=== PATIENT | female | born 1955 | race Caucasian/White ===

== ENCOUNTER 2017-02-02 12:21 | Inpatient (IN) | payer OTHER ==
[2017-02-02] VITALS (7 sets, daily range): BP systolic 134–165; BP diastolic 64–111
[~2017-02-02] VITALS: Ht 160 cm; Wt 54.4 kg
[~2017-02-02 12:21] MED LIST: AMLODIPINE BESYL5 MG; ASPIR 8181 M1 PO; CALCIUM500 M4; Colace PO; DEMECLOCYCLINE150 MG; DILANTIN100 MG; FISH OIL SOFTG1 EACH PO; Keppra PO; LIBRIUM25 MG; LIBRIUM25 MG PO; LUNESTA3 MG; Lunesta; MICRO-K10 ME1 PO; NORVASC5 MG PO; POTASSIUM CL ER 10 M; PROTONIX40 MG PO; Theragran PO; Thiamine,Vitamin B1 PO; Ultram PO; VENTOLIN HFA18 GM; Zestril,Prinivil PO
[2017-02-02 13:05] LABS: GLUCOSE 103 mg/dL (70-99)
[2017-02-02 13:07] LABS: TOTAL BILIRUBIN 2.2 mg/dL (0.0-1.0)
[2017-02-02 13:08] LABS: ALKALINE PHOSPHATASE 185 IU/L (3-129); SERUM ETHYL ALCOHOL < 10 mg/dL
[2017-02-02 13:09] LABS: GFR ESTIMATE (CALCULATED) > 59 mL/min/
[2017-02-02 13:10] LABS: UREA NITROGEN (BUN) 7 mg/dL (9-23)
[2017-02-02 13:16] LABS: ANION GAP 16 MEQ/L (2-14); TROP-I INTERPRETATION NEGATIVE; TROPONIN-I 0.03 ng/mL (0.0-0.30)
[2017-02-02 13:17] LABS: CHLORIDE 70 mEq/L (99-109); POTASSIUM 2.8 mEq/L (3.7-5.4); SODIUM 109 mEq/L (136-147)
[2017-02-02 13:40] LABS: ADD MIUA? YES; BILIRUBIN NEGATIVE; BLOOD SMALL; COLOR YELLOW ((YELLOW)); GLUCOSE (STRIP) NEGATIVE; KETONES 5; LEUKOCYTES TRACE; NITRITE NEGATIVE; PROTEIN (STRIP) >=500; SPECIFIC GRAVITY 1.009 (1.000-1.030)
[2017-02-02 13:42] LABS: BACTERIA NONE SEEN /HPF; EPITHELIAL CELLS RARE /HPF; MUCUS TRACE /LPF; RED BLOOD CELLS 0-5 /HPF (0-5); UCUL ADDED? YES
[2017-02-02 13:44] LABS: EOSINOPHIL (%) 0 % (0-5); HEMATOCRIT 36.7 % (36.0-46.0); IMMATURE GRANULOCYTE (%) 0.8 % (0.0-0.7); INSTRUMENT ABS NEUTROPHIL CT 4.1 K/uL; LYMPHOCYTE COUNT 0.2 K/uL (1.0-2.8); MCH 33.5 PG (29.0-34.0); MCHC 32.7 G/DL (30.0-36.0); MCV 102.5 FL (83-99); MEAN PLAT.VOLUME 8.4 uM^3 (9.5-12.4); MONOCYTE (%) 11.6 % (3-12); MONOCYTE COUNT 0.6 K/uL (0-0.8); NEUTROPHIL (%) 82.5 % (45-76); NEUTROPHIL COUNT 4.1 K/uL (1.8-6.4); PLATELET COUNT 142 K/uL (156-360); RBC DIS.WIDTH-CV 11.2 % (11.8-14.6); RBC DIS.WIDTH-SD 36.1 % (39-53); RED BLOOD COUNT 3.58 M/uL (3.80-5.20); WHITE BLOOD COUNT 4.9 K/uL (4.1-10.2)
[2017-02-02 13:50] LABS: AMPHETAMINE NEGATIVE (500 ng/mL); BARBITURATES NEGATIVE (200 ng/mL); BENZODIAZEPINES NEGATIVE (150 ng/mL); COCAINE NEGATIVE (150 ng/mL); INTERNAL CONTROLS VALID? YES; METHADONE NEGATIVE (200 ng/mL); METHAMPHETAMINE NEGATIVE (500 ng/mL); OPIATES (MORPHINE) NEGATIVE (100 ng/mL); OXYCODONE NEGATIVE (100 ng/mL); PHENCYCLIDINE NEGATIVE (25 ng/mL); PROPOXYPHENE NEGATIVE (300 ng/mL); THC CANNABINOIDS NEGATIVE (50 ng/mL); TRICYCLIC ANTIDEPRESSANTS NEGATIVE (300 ng/mL)
[2017-02-02 14:04] LABS: MAGNESIUM 1.3 mg/dL (1.3-2.7)
[2017-02-02] MEDS ORDERED: PROVENTIL,2.5 MG/0.5 IH (15:47)
[2017-02-02] MEDS ORDERED: COMBIVENT RESPIM4 GM IH (15:47)
[2017-02-02 16:30] LABS: POTASSIUM 3.3 mEq/L (3.7-5.4)
[2017-02-02 16:31] LABS: GLUCOSE 89 mg/dL (70-99)
[2017-02-02 16:33] LABS: ANION GAP 14 MEQ/L (2-14)
[2017-02-02 16:35] LABS: GFR ESTIMATE (CALCULATED) > 59 mL/min/
[2017-02-02 16:36] LABS: UREA NITROGEN (BUN) 6 mg/dL (9-23)
[2017-02-02 16:45] LABS: CHLORIDE 78 mEq/L (99-109); SODIUM 114 mEq/L (136-147)
[2017-02-02 17:33] LABS: URIC ACID 1.9 mg/dL (3.1-9.2)
[2017-02-02 18:20] LABS: METH RESISTANT S AUREUS PCR POSITIVE (NEGATIVE)
[2017-02-02 18:29] LABS: PROBE CHECK PASS; SPECIMEN PROCESSING CONTROL PASS
[2017-02-02 20:28] LABS: ANION GAP 11 MEQ/L (2-14); CHLORIDE 79 MEQ/L (99-109); GFR ESTIMATE (CALCULATED) > 59 mL/min/; GLUCOSE 88 mg/dL (70-99); POTASSIUM 3.1 MEQ/L (3.7-5.4); SAMPLE HEMOLYSIS CHECK 0; SAMPLE ICTERIC CHECK 0; SAMPLE LIPEMIA CHECK 0; UREA NITROGEN (BUN) 6 mg/dL (9-23)
[2017-02-02 20:31] LABS: SODIUM 114 MEQ/L (136-147)
[2017-02-03] VITALS (19 sets, daily range): BP systolic 127–175; BP diastolic 73–113
[2017-02-03 01:17] LABS: CHLORIDE 79 mEq/L (99-109); POTASSIUM 3.7 mEq/L (3.7-5.4)
[2017-02-03 01:19] LABS: GLUCOSE 79 mg/dL (70-99)
[2017-02-03 01:21] LABS: ANION GAP 14 MEQ/L (2-14)
[2017-02-03 01:23] LABS: GFR ESTIMATE (CALCULATED) > 59 mL/min/
[2017-02-03 01:24] LABS: UREA NITROGEN (BUN) 6 mg/dL (9-23)
[2017-02-03 01:35] LABS: MAGNESIUM 2.1 mg/dL (1.3-2.7); SODIUM 114 mEq/L (136-147)
[2017-02-03 06:54] LABS: ANION GAP 7 MEQ/L (2-14); CHLORIDE 78 MEQ/L (99-109); GFR ESTIMATE (CALCULATED) > 59 mL/min/; GLUCOSE 75 mg/dL (70-99); SAMPLE HEMOLYSIS CHECK 3; SAMPLE ICTERIC CHECK 0; SAMPLE LIPEMIA CHECK 0; UREA NITROGEN (BUN) 6 mg/dL (9-23)
[2017-02-03 06:56] LABS: POTASSIUM 4.8 MEQ/L (3.7-5.4); SODIUM 114 MEQ/L (136-147)
[2017-02-03 07:30] LABS: MAGNESIUM 2.2 mg/dl (1.3-2.7)
[2017-02-03 08:22] LABS: UR CREATININE CONCENTRATION 44.8 MG/DL
[2017-02-03 09:05] LABS: ANION GAP 11 MEQ/L (2-14); CHLORIDE 81 MEQ/L (99-109); GFR ESTIMATE (CALCULATED) > 59 mL/min/; GLUCOSE 81 mg/dL (70-99); SAMPLE HEMOLYSIS CHECK 0; SAMPLE ICTERIC CHECK 0; SAMPLE LIPEMIA CHECK 0; UREA NITROGEN (BUN) 7 mg/dL (9-23)
[2017-02-03 09:07] LABS: POTASSIUM 3.1 MEQ/L (3.7-5.4); SODIUM 116 MEQ/L (136-147)
[2017-02-03 10:52] LABS: EOSINOPHIL (%) 0.5 % (0-5); HEMATOCRIT 33.9 % (36.0-46.0); IMMATURE GRANULOCYTE (%) 0.8 % (0.0-0.7); INSTRUMENT ABS NEUTROPHIL CT 2.5 K/uL; LYMPHOCYTE COUNT 0.4 K/uL (1.0-2.8); MCH 33.3 PG (29.0-34.0); MEAN PLAT.VOLUME 8.4 uM^3 (9.5-12.4); MONOCYTE (%) 23.9 % (3-12); MONOCYTE COUNT 0.9 K/uL (0-0.8); NEUTROPHIL (%) 64.4 % (45-76); NEUTROPHIL COUNT 2.5 K/uL (1.8-6.4); PLATELET COUNT 115 K/uL (156-360); RBC DIS.WIDTH-CV 11.4 % (11.8-14.6); RED BLOOD COUNT 3.66 M/uL (3.80-5.20); WHITE BLOOD COUNT 3.9 K/uL (4.1-10.2)
[2017-02-03 10:57] LABS: MCV 92.6 FL (83-99)
[2017-02-03 15:29] LABS: ANION GAP 7 MEQ/L (2-14); CHLORIDE 83 MEQ/L (99-109); GFR ESTIMATE (CALCULATED) > 59 mL/min/; SAMPLE HEMOLYSIS CHECK 0; SAMPLE ICTERIC CHECK 0; SAMPLE LIPEMIA CHECK 0; UREA NITROGEN (BUN) 8 mg/dL (9-23)
[2017-02-03 15:37] LABS: GLUCOSE 129 mg/dL (70-99); SODIUM 116 MEQ/L (136-147)
[2017-02-03 16:49] LABS: C3 COMPLEMENT 89 MG/DL (58-170); C4 COMPLEMENT 29 MG/DL (10-40)
[2017-02-03 16:53] LABS: HDL CHOLESTEROL 71 MG/DL (Desirable>=50); LDL CHOLESTEROL 40 mg/dL (Desirable<100); NON-HDL CHOLESTEROL 53 mg/dL (Desirable<160); TOTAL CHOLESTEROL 124 mg/dL (Desirable<200); TRIGLYCERIDES 63 MG/DL (Normal: <150)
[2017-02-03 17:36] LABS: Estimated Average Glucose 97 mg/dL (70-123)
[2017-02-03 20:31] LABS: ANION GAP 9 MEQ/L (2-14); CHLORIDE 83 MEQ/L (99-109); GFR ESTIMATE (CALCULATED) > 59 mL/min/; GLUCOSE 100 mg/dL (70-99); MAGNESIUM 2.3 mg/dl (1.3-2.7); POTASSIUM 3.6 MEQ/L (3.7-5.4); SAMPLE HEMOLYSIS CHECK 0; SAMPLE ICTERIC CHECK 0; SAMPLE LIPEMIA CHECK 0; UREA NITROGEN (BUN) 10 mg/dL (9-23)
[2017-02-03 20:32] LABS: SODIUM 118 MEQ/L (136-147)
[2017-02-04] VITALS (22 sets, daily range): BP systolic 119–188; BP diastolic 74–133
[2017-02-04 01:00] LABS: MAGNESIUM 2.2 mg/dL (1.3-2.7)
[2017-02-04 01:01] LABS: GLUCOSE 110 mg/dL (70-99)
[2017-02-04 01:02] LABS: ANION GAP 11 MEQ/L (2-14)
[2017-02-04 01:05] LABS: GFR ESTIMATE (CALCULATED) > 59 mL/min/; UREA NITROGEN (BUN) 9 mg/dL (9-23)
[2017-02-04 01:27] LABS: CHLORIDE 87 mEq/L (99-109); POTASSIUM 4.4 mEq/L (3.7-5.4); SODIUM 119 mEq/L (136-147)
[2017-02-04 05:30] LABS: EOSINOPHIL (%) 1.6 % (0-5); EOSINOPHIL COUNT 0.1 K/uL (0-0.3); HEMATOCRIT 30.6 % (36.0-46.0); IMMATURE GRANULOCYTE (%) 0.5 % (0.0-0.7); INSTRUMENT ABS NEUTROPHIL CT 3.1 K/uL; LYMPHOCYTE COUNT 0.5 K/uL (1.0-2.8); MCH 32.3 PG (29.0-34.0); MCV 92.4 FL (83-99); MEAN PLAT.VOLUME 8.7 uM^3 (9.5-12.4); MONOCYTE COUNT 0.7 K/uL (0-0.8); NEUTROPHIL (%) 69.5 % (45-76); NEUTROPHIL COUNT 3.1 K/uL (1.8-6.4); PLATELET COUNT 133 K/uL (156-360); RBC DIS.WIDTH-CV 11.4 % (11.8-14.6); RBC DIS.WIDTH-SD 38.5 % (39-53); RED BLOOD COUNT 3.31 M/uL (3.80-5.20); WHITE BLOOD COUNT 4.4 K/uL (4.1-10.2)
[2017-02-04 06:06] LABS: ANION GAP 8 MEQ/L (2-14); CHLORIDE 87 MEQ/L (99-109); GFR ESTIMATE (CALCULATED) > 59 mL/min/; GLUCOSE 101 mg/dL (70-99); MAGNESIUM 2.1 mg/dl (1.3-2.7); SAMPLE HEMOLYSIS CHECK 0; SAMPLE ICTERIC CHECK 0; SAMPLE LIPEMIA CHECK 0; SODIUM 120 MEQ/L (136-147); UREA NITROGEN (BUN) 6 mg/dL (9-23)
[2017-02-04 11:06] LABS: HBSG INDEX 0.26; HPCA INDEX 0.17
[2017-02-04 11:07] LABS: AHBS INDEX 0.23; HEPATITIS B SURFACE ANTIBODY Nonreactive
[2017-02-04 13:37] LABS: ANION GAP 8 MEQ/L (2-14); CHLORIDE 88 MEQ/L (99-109); GFR ESTIMATE (CALCULATED) > 59 mL/min/; GLUCOSE 114 mg/dL (70-99); MAGNESIUM 1.9 mg/dl (1.3-2.7); POTASSIUM 4.3 MEQ/L (3.7-5.4); SAMPLE HEMOLYSIS CHECK 0; SAMPLE ICTERIC CHECK 0; SAMPLE LIPEMIA CHECK 0; UREA NITROGEN (BUN) 7 mg/dL (9-23)
[2017-02-04 13:41] LABS: SODIUM 116 MEQ/L (136-147)
[2017-02-04 19:23] LABS: ANION GAP 12 MEQ/L (2-14); CHLORIDE 89 MEQ/L (99-109); GFR ESTIMATE (CALCULATED) > 59 mL/min/; GLUCOSE 91 mg/dL (70-99); MAGNESIUM 2.1 mg/dl (1.3-2.7); POTASSIUM 4.6 MEQ/L (3.7-5.4); SAMPLE HEMOLYSIS CHECK 1; SAMPLE ICTERIC CHECK 0; SAMPLE LIPEMIA CHECK 0; SODIUM 118 MEQ/L (136-147); UREA NITROGEN (BUN) 8 mg/dL (9-23)
[2017-02-05] VITALS (25 sets, daily range): BP systolic 101–189; BP diastolic 60–104
[2017-02-05 01:34] LABS: CHLORIDE 88 mEq/L (99-109); SODIUM 120 mEq/L (136-147)
[2017-02-05 01:35] LABS: MAGNESIUM 2.2 mg/dL (1.3-2.7)
[2017-02-05 01:36] LABS: GLUCOSE 102 mg/dL (70-99)
[2017-02-05 01:38] LABS: ANION GAP 11 MEQ/L (2-14)
[2017-02-05 01:40] LABS: GFR ESTIMATE (CALCULATED) > 59 mL/min/
[2017-02-05 01:41] LABS: UREA NITROGEN (BUN) 6 mg/dL (9-23)
[2017-02-05 06:57] LABS: HEMATOCRIT 37.6 % (36.0-46.0); MCH 33.4 PG (29.0-34.0); MCHC 33.8 G/DL (30.0-36.0); RBC DIS.WIDTH-CV 11.7 % (11.8-14.6); RBC DIS.WIDTH-SD 42.9 % (39-53); WHITE BLOOD COUNT 5.7 K/uL (4.1-10.2)
[2017-02-05 06:58] LABS: MCV 98.9 FL (83-99)
[2017-02-05 06:59] LABS: ALKALINE PHOSPHATASE 135 IU/L (3-129); ANION GAP 11 MEQ/L (2-14); CHLORIDE 91 MEQ/L (99-109); DIRECT BILIRUBIN 0.3 mg/dL (0.0-0.3); GFR ESTIMATE (CALCULATED) > 59 mL/min/; GLUCOSE 79 mg/dL (70-99); MAGNESIUM 2.2 mg/dl (1.3-2.7); POTASSIUM 4.4 MEQ/L (3.7-5.4); SAMPLE HEMOLYSIS CHECK 2; SAMPLE ICTERIC CHECK 0; SAMPLE LIPEMIA CHECK 0; SODIUM 124 MEQ/L (136-147); TOTAL BILIRUBIN 1.7 MG/DL (0.0-1.0); UREA NITROGEN (BUN) 7 mg/dL (9-23)
[2017-02-05 07:51] LABS: BASOPHIL COUNT 0.1 K/uL (0-0.1); EOSINOPHIL (%) 1.4 % (0-5); EOSINOPHIL COUNT 0.1 K/uL (0-0.3); IMMATURE GRANULOCYTE (%) 0.5 % (0.0-0.7); INSTRUMENT ABS NEUTROPHIL CT 2.9 K/uL; LYMPHOCYTE COUNT 0.6 K/uL (1.0-2.8); MONOCYTE (%) 35.6 % (3-12); NEUTROPHIL (%) 50.4 % (45-76); NEUTROPHIL COUNT 2.9 K/uL (1.8-6.4); PLAT.SUFFICIENCY DECREASED; PLATELET COUNT 95 K/uL (156-360)
[2017-02-05 13:23] LABS: ANION GAP 12 MEQ/L (2-14); CHLORIDE 92 MEQ/L (99-109); GFR ESTIMATE (CALCULATED) > 59 mL/min/; MAGNESIUM 2.1 mg/dl (1.3-2.7); POTASSIUM 3.9 MEQ/L (3.7-5.4); SAMPLE HEMOLYSIS CHECK 0; SAMPLE ICTERIC CHECK 0; SAMPLE LIPEMIA CHECK 0; SODIUM 124 MEQ/L (136-147); UREA NITROGEN (BUN) 6 mg/dL (9-23)
[2017-02-05 13:30] LABS: GLUCOSE 105 mg/dL (70-99)
[2017-02-05 18:37] LABS: ANION GAP 11 MEQ/L (2-14); CHLORIDE 92 MEQ/L (99-109); GFR ESTIMATE (CALCULATED) > 59 mL/min/; GLUCOSE 111 mg/dL (70-99); MAGNESIUM 2.1 mg/dl (1.3-2.7); POTASSIUM 3.4 MEQ/L (3.7-5.4); SAMPLE HEMOLYSIS CHECK 0; SAMPLE ICTERIC CHECK 0; SAMPLE LIPEMIA CHECK 0; SODIUM 127 MEQ/L (136-147); UREA NITROGEN (BUN) 8 mg/dL (9-23)
[2017-02-06] VITALS (21 sets, daily range): BP systolic 119–188; BP diastolic 68–103
[2017-02-06 00:41] LABS: CHLORIDE 93 mEq/L (99-109); POTASSIUM 3.8 mEq/L (3.7-5.4); SODIUM 128 mEq/L (136-147)
[2017-02-06 00:42] LABS: MAGNESIUM 2.2 mg/dL (1.3-2.7)
[2017-02-06 00:43] LABS: GLUCOSE 107 mg/dL (70-99)
[2017-02-06 00:45] LABS: ANION GAP 11 MEQ/L (2-14)
[2017-02-06 00:47] LABS: GFR ESTIMATE (CALCULATED) > 59 mL/min/
[2017-02-06 00:48] LABS: UREA NITROGEN (BUN) 11 mg/dL (9-23)
[2017-02-06 04:52] LABS: BASOPHIL COUNT 0.1 K/uL (0-0.1); EOSINOPHIL (%) 1.4 % (0-5); EOSINOPHIL COUNT 0.1 K/uL (0-0.3); HEMATOCRIT 31.3 % (36.0-46.0); IMMATURE GRANULOCYTE (%) 0.7 % (0.0-0.7); INSTRUMENT ABS NEUTROPHIL CT 3.1 K/uL; LYMPHOCYTE COUNT 0.9 K/uL (1.0-2.8); MCH 33.5 PG (29.0-34.0); MCHC 34.5 G/DL (30.0-36.0); MCV 97.2 FL (83-99); MEAN PLAT.VOLUME 8.8 uM^3 (9.5-12.4); MONOCYTE (%) 23.8 % (3-12); MONOCYTE COUNT 1.3 K/uL (0-0.8); NEUTROPHIL (%) 56.4 % (45-76); NEUTROPHIL COUNT 3.1 K/uL (1.8-6.4); RBC DIS.WIDTH-CV 11.8 % (11.8-14.6); RBC DIS.WIDTH-SD 41.6 % (39-53); RED BLOOD COUNT 3.22 M/uL (3.80-5.20); WHITE BLOOD COUNT 5.6 K/uL (4.1-10.2)
[2017-02-06 04:53] LABS: PLATELET COUNT 165 K/uL (156-360)
[2017-02-06 04:57] LABS: CHLORIDE 95 mEq/L (99-109); MAGNESIUM 2.3 mg/dL (1.3-2.7); SODIUM 129 mEq/L (136-147)
[2017-02-06 04:59] LABS: GLUCOSE 103 mg/dL (70-99)
[2017-02-06 05:00] LABS: ANION GAP 9 MEQ/L (2-14)
[2017-02-06 05:03] LABS: GFR ESTIMATE (CALCULATED) > 59 mL/min/; UREA NITROGEN (BUN) 11 mg/dL (9-23)
[2017-02-06 16:34] LABS: ANION GAP 8 MEQ/L (2-14); CHLORIDE 93 MEQ/L (99-109); GFR ESTIMATE (CALCULATED) > 59 mL/min/; GLUCOSE 113 mg/dL (70-99); POTASSIUM 3.5 MEQ/L (3.7-5.4); SAMPLE HEMOLYSIS CHECK 0; SAMPLE ICTERIC CHECK 0; SAMPLE LIPEMIA CHECK 0; SODIUM 128 MEQ/L (136-147); UREA NITROGEN (BUN) 10 mg/dL (9-23)
[2017-02-06 16:37] LABS: MAGNESIUM 1.7 mg/dl (1.3-2.7)
[2017-02-07] VITALS (7 sets, daily range): BP systolic 126–175; BP diastolic 76–90
[2017-02-07 00:56] LABS: CHLORIDE 96 mEq/L (99-109); SODIUM 128 mEq/L (136-147)
[2017-02-07 00:58] LABS: GLUCOSE 119 mg/dL (70-99); MAGNESIUM 1.7 mg/dL (1.3-2.7)
[2017-02-07 01:00] LABS: ANION GAP 5 MEQ/L (2-14)
[2017-02-07 01:02] LABS: GFR ESTIMATE (CALCULATED) > 59 mL/min/
[2017-02-07 01:03] LABS: UREA NITROGEN (BUN) 10 mg/dL (9-23)
[2017-02-07 01:53] LABS: ADD MIUA? YES; BILIRUBIN NEGATIVE; BLOOD SMALL; COLOR YELLOW ((YELLOW)); GLUCOSE (STRIP) NEGATIVE; KETONES NEGATIVE; LEUKOCYTES TRACE; NITRITE NEGATIVE; PROTEIN (STRIP) NEGATIVE; SPECIFIC GRAVITY 1.014 (1.000-1.030)
[2017-02-07 02:01] LABS: BASOPHIL COUNT 0.1 K/uL (0-0.1); EOSINOPHIL (%) 0.6 % (0-5); HEMATOCRIT 27.1 % (36.0-46.0); IMMATURE GRANULOCYTE (%) 0.6 % (0.0-0.7); INSTRUMENT ABS NEUTROPHIL CT 4.1 K/uL; LYMPHOCYTE COUNT 0.6 K/uL (1.0-2.8); MCH 33.6 PG (29.0-34.0); MCHC 34.7 G/DL (30.0-36.0); MCV 96.8 FL (83-99); MEAN PLAT.VOLUME 8.5 uM^3 (9.5-12.4); MONOCYTE (%) 25.5 % (3-12); MONOCYTE COUNT 1.6 K/uL (0-0.8); NEUTROPHIL (%) 63.6 % (45-76); NEUTROPHIL COUNT 4.1 K/uL (1.8-6.4); PLATELET COUNT 178 K/uL (156-360); RBC DIS.WIDTH-CV 11.9 % (11.8-14.6); RBC DIS.WIDTH-SD 42.3 % (39-53); WHITE BLOOD COUNT 6.4 K/uL (4.1-10.2)
[2017-02-07 02:14] LABS: CHLORIDE 98 mEq/L (99-109); SODIUM 127 mEq/L (136-147)
[2017-02-07 02:46] LABS: GFR ESTIMATE (CALCULATED) > 59 mL/min/; GLUCOSE 118 mg/dL (70-99); TOTAL BILIRUBIN 1.1 MG/DL (0.0-1.0); UREA NITROGEN (BUN) 10 mg/dL (9-23)
[2017-02-07 02:47] LABS: ALKALINE PHOSPHATASE 130 IU/L (3-129)
[2017-02-07 02:53] LABS: BACTERIA RARE /HPF; CASTS NONE SEEN /LPF; CRYSTALS NONE SEEN; EPITHELIAL CELLS RARE /HPF; MUCUS NONE SEEN /LPF; RED BLOOD CELLS 0-5 /HPF (0-5); WHITE BLOOD CELLS 0-5 /HPF (0-5)
[2017-02-07 07:28] LABS: BASOPHIL COUNT 0.1 K/uL (0-0.1); EOSINOPHIL (%) 1.6 % (0-5); EOSINOPHIL COUNT 0.1 K/uL (0-0.3); HEMATOCRIT 25.1 % (36.0-46.0); IMMATURE GRANULOCYTE (%) 0.7 % (0.0-0.7); INSTRUMENT ABS NEUTROPHIL CT 3.2 K/uL; LYMPHOCYTE COUNT 0.7 K/uL (1.0-2.8); MCH 33.2 PG (29.0-34.0); MCHC 33.5 G/DL (30.0-36.0); MCV 99.2 FL (83-99); MEAN PLAT.VOLUME 8.9 uM^3 (9.5-12.4); MONOCYTE (%) 27.8 % (3-12); MONOCYTE COUNT 1.6 K/uL (0-0.8); NEUTROPHIL (%) 56.2 % (45-76); NEUTROPHIL COUNT 3.2 K/uL (1.8-6.4); PLATELET COUNT 188 K/uL (156-360); RBC DIS.WIDTH-CV 12.2 % (11.8-14.6); RBC DIS.WIDTH-SD 44.3 % (39-53); RED BLOOD COUNT 2.53 M/uL (3.80-5.20); WHITE BLOOD COUNT 5.6 K/uL (4.1-10.2)
[2017-02-07 07:50] LABS: ANION GAP 6 MEQ/L (2-14); CHLORIDE 99 MEQ/L (99-109); GFR ESTIMATE (CALCULATED) > 59 mL/min/; GLUCOSE 105 mg/dL (70-99); POTASSIUM 4.5 MEQ/L (3.7-5.4); SAMPLE HEMOLYSIS CHECK 0; SAMPLE ICTERIC CHECK 0; SAMPLE LIPEMIA CHECK 0; SODIUM 130 MEQ/L (136-147); UREA NITROGEN (BUN) 11 mg/dL (9-23)
[2017-02-07 07:52] LABS: MAGNESIUM 2.1 mg/dl (1.3-2.7)
[2017-02-07 14:55] LABS: ANION GAP 9 MEQ/L (2-14); CHLORIDE 99 MEQ/L (99-109); GFR ESTIMATE (CALCULATED) > 59 mL/min/; GLUCOSE 153 mg/dL (70-99); MAGNESIUM 1.8 mg/dl (1.3-2.7); POTASSIUM 3.9 MEQ/L (3.7-5.4); SAMPLE HEMOLYSIS CHECK 0; SAMPLE ICTERIC CHECK 0; SAMPLE LIPEMIA CHECK 0; SODIUM 129 MEQ/L (136-147); UREA NITROGEN (BUN) 12 mg/dL (9-23)
[2017-02-07 16:39] LABS: URIC ACID 1.6 mg/dL (3.1-9.2)
[2017-02-07 22:09] LABS: Cryoglobulin, Qualitative None Detected (None Detected)
[2017-02-08] VITALS (10 sets, daily range): BP systolic 127–185; BP diastolic 67–90
[2017-02-08 06:14] LABS: HEMATOCRIT 32.5 % (36.0-46.0); MCH 32.7 PG (29.0-34.0); MCHC 33.8 G/DL (30.0-36.0); MCV 96.7 FL (83-99); MEAN PLAT.VOLUME 8.5 uM^3 (9.5-12.4); PLATELET COUNT 216 K/uL (156-360); RBC DIS.WIDTH-CV 12.7 % (11.8-14.6); RBC DIS.WIDTH-SD 45.1 % (39-53); WHITE BLOOD COUNT 5.5 K/uL (4.1-10.2)
[2017-02-08 06:27] LABS: RED BLOOD COUNT 3.36 M/uL (3.80-5.20)
[2017-02-08 07:17] LABS: URIC ACID < 1.5 mg/dL (3.1-9.2)
[2017-02-08 07:20] LABS: ANION GAP 6 MEQ/L (2-14); CHLORIDE 93 MEQ/L (99-109); GFR ESTIMATE (CALCULATED) > 59 mL/min/; IRON 57 MCG/DL (35-150); POTASSIUM 3.7 MEQ/L (3.7-5.4); SAMPLE HEMOLYSIS CHECK 0; SAMPLE ICTERIC CHECK 0; SAMPLE LIPEMIA CHECK 0; SODIUM 128 MEQ/L (136-147); UREA NITROGEN (BUN) 8 mg/dL (9-23)
[2017-02-08 07:27] LABS: ALKALINE PHOSPHATASE 100 IU/L (3-129); GLUCOSE 104 mg/dL (70-99); TOTAL BILIRUBIN 1.4 MG/DL (0.0-1.0)
[2017-02-08 07:57] LABS: FERRITIN 742 NG/ML (10-291)
[2017-02-08 20:39] LABS: INTERNAL CONTROL VALID? YES
[2017-02-09] VITALS (7 sets, daily range): BP systolic 119–183; BP diastolic 56–88
[2017-02-09 04:24] LABS: HEMATOCRIT 33.5 % (36.0-46.0); MCH 33.1 PG (29.0-34.0); MCHC 34.9 G/DL (30.0-36.0); MCV 94.6 FL (83-99); MEAN PLAT.VOLUME 8.4 uM^3 (9.5-12.4); PLATELET COUNT 231 K/uL (156-360); RBC DIS.WIDTH-CV 12.3 % (11.8-14.6); RBC DIS.WIDTH-SD 42.9 % (39-53); RED BLOOD COUNT 3.54 M/uL (3.80-5.20); WHITE BLOOD COUNT 4.1 K/uL (4.1-10.2)
[2017-02-09 04:34] LABS: CHLORIDE 93 mEq/L (99-109); POTASSIUM 3.5 mEq/L (3.7-5.4); SODIUM 130 mEq/L (136-147)
[2017-02-09 04:36] LABS: GLUCOSE 108 mg/dL (70-99)
[2017-02-09 04:37] LABS: ANION GAP 11 MEQ/L (2-14)
[2017-02-09 04:40] LABS: GFR ESTIMATE (CALCULATED) > 59 mL/min/
[2017-02-09 04:41] LABS: UREA NITROGEN (BUN) 9 mg/dL (9-23)
[2017-02-09 04:42] LABS: MAGNESIUM 1.1 mg/dL (1.3-2.7)
[2017-02-09 08:41] LABS: INTACT PARATHYROID HORMONE 15 pg/mL (10-69)
[2017-02-09 12:21] LABS: URINE TOTAL PROTEIN 78 MG/DL (0-10)
[2017-02-10 03:40] VITALS: BP 178/79
[2017-02-10 07:17] LABS: ANION GAP 8 MEQ/L (2-14); CHLORIDE 94 MEQ/L (99-109); GFR ESTIMATE (CALCULATED) > 59 mL/min/; GLUCOSE 111 mg/dL (70-99); POTASSIUM 4.1 MEQ/L (3.7-5.4); SAMPLE HEMOLYSIS CHECK 0; SAMPLE ICTERIC CHECK 0; SAMPLE LIPEMIA CHECK 0; SODIUM 129 MEQ/L (136-147); UREA NITROGEN (BUN) 13 mg/dL (9-23)
[2017-02-10 07:19] LABS: MAGNESIUM 1.4 mg/dl (1.3-2.7)
[2017-02-10 08:18] VITALS: BP 152/78
[2017-02-10 11:57] VITALS: BP 146/74
[2017-02-10 19:54] VITALS: BP 147/69
[2017-02-11 00:03] VITALS: BP 140/70
[2017-02-11 03:35] VITALS: BP 163/75
[2017-02-11 06:43] LABS: MCH 32.3 PG (29.0-34.0); MCHC 32.8 G/DL (30.0-36.0); MCV 98.5 FL (83-99); MEAN PLAT.VOLUME 8.6 uM^3 (9.5-12.4); RBC DIS.WIDTH-CV 12.6 % (11.8-14.6); RBC DIS.WIDTH-SD 45.5 % (39-53); RED BLOOD COUNT 3.25 M/uL (3.80-5.20); WHITE BLOOD COUNT 5.8 K/uL (4.1-10.2)
[2017-02-11 06:50] LABS: PLATELET COUNT 321 K/uL (156-360)
[2017-02-11 07:07] LABS: ANION GAP 9 MEQ/L (2-14); CHLORIDE 95 MEQ/L (99-109); GFR ESTIMATE (CALCULATED) > 59 mL/min/; GLUCOSE 103 mg/dL (70-99); MAGNESIUM 1.3 mg/dl (1.3-2.7); POTASSIUM 4.2 MEQ/L (3.7-5.4); SAMPLE HEMOLYSIS CHECK 0; SAMPLE ICTERIC CHECK 0; SAMPLE LIPEMIA CHECK 0; SODIUM 131 MEQ/L (136-147); UREA NITROGEN (BUN) 14 mg/dL (9-23)
[2017-02-11 07:10] LABS: ALKALINE PHOSPHATASE 99 IU/L (3-129); ANION GAP 9 MEQ/L (2-14); CHLORIDE 96 MEQ/L (99-109); GFR ESTIMATE (CALCULATED) > 59 mL/min/; GLUCOSE 103 mg/dL (70-99); POTASSIUM 4.2 MEQ/L (3.7-5.4); SAMPLE HEMOLYSIS CHECK 0; SAMPLE ICTERIC CHECK 0; SAMPLE LIPEMIA CHECK 0; SODIUM 132 MEQ/L (136-147); UREA NITROGEN (BUN) 14 mg/dL (9-23)
[2017-02-11 07:28] LABS: TOTAL BILIRUBIN 0.8 MG/DL (0.0-1.0)
[2017-02-11 08:00] VITALS: BP 138/84
[2017-02-11 11:51] VITALS: BP 104/62
[2017-02-11] MEDS ORDERED: AMLODIPINE BESYL5 MG PO (12:10)
[2017-02-11] MEDS ORDERED: ATORVASTATIN CA40 MG PO (12:10)
[2017-02-11] MEDS ORDERED: SODIUM CHLORIDE1 G1 PO (12:11)
[2017-02-11] MEDS ORDERED: FAMOTIDINE20 MG PO (12:11)
[2017-02-11] MEDS ORDERED: ASPIR-LOW81 MG PO (12:11)
[2017-02-11] MEDS ORDERED: ERGOCALCIF50000 UNIT PO (12:12)
[2017-02-11] MEDS ORDERED: CALCITRIOL0.25 MCG PO (12:12)
== END 2017-02-11 15:26 | DRG 643 ==
LOC: EME → EDBD 12:21 → EDOF 15:15 → 4EAST 15:15 → 4WEST 15:15 → ENRESERV 15:16 → 4WEST 16:27 → ENRESERV 02-06 19:04 → 4EAST 02-06 21:08 → ENRESERV 02-09 09:00 → 5SOUTH 02-09 11:10
PROVIDERS: Emergency Medicine; Internal Medicine; Internal Medicine Nephrology; Specialist
PROC: 30233N1 Transfusion of Nonautologous Red Blood Cells into Peripheral Vein, Percutaneous Approach (ICD-10-PCS; principal; 2017-02-07)
DX: E22.2 Syndrome of inappropriate secretion of antidiuretic hormone (principal); G93.41 Metabolic encephalopathy; F10.239 Alcohol dependence with withdrawal, unspecified; E87.2 Acidosis; N39.0 Urinary tract infection, site not specified; Z68.1 Body mass index [BMI] 19.9 or less, adult; E83.42 Hypomagnesemia; E83.39 Other disorders of phosphorus metabolism; Y90.0 Blood alcohol level of less than 20 mg/100 ml; E86.1 Hypovolemia; E87.6 Hypokalemia; E83.51 Hypocalcemia; K70.9 Alcoholic liver disease, unspecified; G40.909 Epilepsy, unspecified, not intractable, without status epilepticus; I10 Essential (primary) hypertension; J45.909 Unspecified asthma, uncomplicated; E88.89 Other specified metabolic disorders; K76.89 Other specified diseases of liver; R80.9 Proteinuria, unspecified; E87.8 Other disorders of electrolyte and fluid balance, not elsewhere classified; Z81.1 Family history of alcohol abuse and dependence; Z86.73 Personal history of transient ischemic attack (TIA), and cerebral infarction without residual deficits
CPT/HCPCS: 70450; 70551; 71010; 80048; 80048 91; 80053; 80061; 80069; 80076; 81003; 82140; 82272; 82306; 82436; 82533 91; 82570; 82595 90; 82607; 82728; 82746; 83036; 83540; 83605; 83735; 83935; 83970; 84100; 84156; 84300; 84443; 84466; 84484; 84550; 85025; 85025 91; 85027; 86160; 86334; 86335; 86706; 86803; 86850; 86900; 86901; 86920; 87040; 87086; 87340; 87641; 92523 GN; 92610 GN; 93005; 93880; 97530 GO; 97530 GP; 99281; 99285; G0480; J0360; J0696; J1644; J2060; J3411; J3475; J3480; J7030; J7050; P9016; S0028

== ENCOUNTER 2017-03-28 09:20 | Inpatient (IN) | payer OTHER ==
[~2017-03-28] VITALS: Ht 165.1 cm; Wt 51.6 kg
[~2017-03-28 09:20] MED LIST changes: +AMLODIPINE BESYL5 MG PO; +ASPIR-LOW81 MG PO; +ATORVASTATIN CA40 MG PO; +CALCITRIOL0.25 MCG PO; +COMBIVENT RESPIM4 GM IH; +ERGOCALCIF50000 UNIT PO; +FAMOTIDINE20 MG PO; +PROVENTIL,2.5 MG/0.5 IH; +SODIUM CHLORIDE1 G1 PO
[2017-03-28 09:55] LABS: EOSINOPHIL (%) 3.3 % (0-5); EOSINOPHIL COUNT 0.2 K/uL (0-0.3); HEMATOCRIT 34.3 % (36.0-46.0); IMMATURE GRANULOCYTE (%) 0.4 % (0.0-0.7); INSTRUMENT ABS NEUTROPHIL CT 4.8 K/uL; LYMPHOCYTE COUNT 1.1 K/uL (1.0-2.8); MCH 32.8 PG (29.0-34.0); MCHC 34.1 G/DL (30.0-36.0); MCV 96.1 FL (83-99); MEAN PLAT.VOLUME 8.7 uM^3 (9.5-12.4); MONOCYTE (%) 11.9 % (3-12); MONOCYTE COUNT 0.8 K/uL (0-0.8); NEUTROPHIL (%) 68.6 % (45-76); NEUTROPHIL COUNT 4.8 K/uL (1.8-6.4); PLATELET COUNT 326 K/uL (156-360); RBC DIS.WIDTH-CV 12.5 % (11.8-14.6); RBC DIS.WIDTH-SD 44.4 % (39-53); RED BLOOD COUNT 3.57 M/uL (3.80-5.20)
[2017-03-28 10:02] LABS: INTER. NORMALIZED RATIO 1.2; PROTHROMBIN TIME 13.4 SEC (10.2-12.9)
[2017-03-28 10:07] LABS: AMYLASE 44 IU/L (1-118); CHLORIDE 100 mEq/L (99-109); POTASSIUM 3.7 mEq/L (3.7-5.4); SODIUM 135 mEq/L (136-147)
[2017-03-28 10:09] LABS: GLUCOSE 108 mg/dL (70-99)
[2017-03-28 10:10] LABS: ANION GAP 8 MEQ/L (2-14)
[2017-03-28 10:12] LABS: GFR ESTIMATE (CALCULATED) > 59 mL/min/; SERUM ETHYL ALCOHOL < 10 mg/dL
[2017-03-28 10:13] LABS: UREA NITROGEN (BUN) 5 mg/dL (9-23)
[2017-03-28 10:15] LABS: LIPASE 12 U/L (1.0-51.0)
[2017-03-28 10:18] LABS: TROP-I INTERPRETATION NEGATIVE; TROPONIN-I < 0.01 ng/mL (0.0-0.30)
[2017-03-28 14:45] VITALS: BP 165/78
[2017-03-28 16:30] LABS: Estimated Average Glucose 100 mg/dL (70-123); HEMOGLOBIN A1c (GLYCOHEMOGLOB) 5.1 % HGB (Below 5.7)
[2017-03-28 16:33] LABS: HDL CHOLESTEROL 45 MG/DL (Desirable>=50); LDL CHOLESTEROL 57 mg/dL (Desirable<100); NON-HDL CHOLESTEROL 72 mg/dL (Desirable<160); TOTAL CHOLESTEROL 117 mg/dL (Desirable<200); TRIGLYCERIDES 74 MG/DL (Normal: <150)
[2017-03-28 19:37] VITALS: BP 132/73
[2017-03-28 23:49] VITALS: BP 133/76
[2017-03-29 03:25] VITALS: BP 121/56
[2017-03-29 06:35] LABS: HEMATOCRIT 31.9 % (36.0-46.0); MCH 32.1 PG (29.0-34.0); MCHC 33.9 G/DL (30.0-36.0); MCV 94.9 FL (83-99); MEAN PLAT.VOLUME 9.4 uM^3 (9.5-12.4); PLATELET COUNT 328 K/uL (156-360); RBC DIS.WIDTH-CV 12.4 % (11.8-14.6); RBC DIS.WIDTH-SD 43.5 % (39-53); RED BLOOD COUNT 3.36 M/uL (3.80-5.20); WHITE BLOOD COUNT 7.4 K/uL (4.1-10.2)
[2017-03-29 07:00] LABS: ANION GAP 7 MEQ/L (2-14); CHLORIDE 98 MEQ/L (99-109); GFR ESTIMATE (CALCULATED) > 59 mL/min/; GLUCOSE 95 mg/dL (70-99); POTASSIUM 3.8 MEQ/L (3.7-5.4); SAMPLE HEMOLYSIS CHECK 0; SAMPLE ICTERIC CHECK 0; SAMPLE LIPEMIA CHECK 0; SODIUM 131 MEQ/L (136-147); UREA NITROGEN (BUN) 7 mg/dL (9-23)
[2017-03-29 07:11] VITALS: BP 123/66
[2017-03-29 11:10] VITALS: BP 151/70
[2017-03-29] MEDS ORDERED: ASPIRIN81 M2 PO (13:44)
[2017-03-29] MEDS ORDERED: FAMOTIDINE20 MG PO (13:45)
[2017-03-29] MEDS ORDERED: AMLODIPINE BESYL5 MG PO (13:46)
[2017-03-29] MEDS ORDERED: SYMBICORT60 INHALAT IH (13:47)
[2017-03-29] MEDS ORDERED: MICRO-K10 ME2 PO (13:48)
[2017-03-29] MEDS ORDERED: ALEVE220 MG PO (13:49)
[2017-03-29 15:09] VITALS: BP 130/72
[2017-03-29 19:27] VITALS: BP 139/71
[2017-03-30 00:31] VITALS: BP 119/67
[2017-03-30 04:05] VITALS: BP 118/66
[2017-03-30 06:35] LABS: HEMATOCRIT 33.3 % (36.0-46.0); IMM.RETIC FRACTION 4.9 % (3-19); MCH 32.5 PG (29.0-34.0); MCHC 33.9 G/DL (30.0-36.0); MCV 95.7 FL (83-99); MEAN PLAT.VOLUME 9.2 uM^3 (9.5-12.4); PLATELET COUNT 298 K/uL (156-360); RBC DIS.WIDTH-CV 12.4 % (11.8-14.6); RBC DIS.WIDTH-SD 42.6 % (39-53); RED BLOOD COUNT 3.48 M/uL (3.80-5.20); RETIC HGB EQUIVALENT 34.6 (28-36); RETICULOCYTE COUNT 1.8 % (0.5-1.8); WHITE BLOOD COUNT 3.5 K/uL (4.1-10.2)
[2017-03-30 06:47] LABS: ANION GAP 7 MEQ/L (2-14); CHLORIDE 100 MEQ/L (99-109); GFR ESTIMATE (CALCULATED) > 59 mL/min/; GLUCOSE 92 mg/dL (70-99); POTASSIUM 3.6 MEQ/L (3.7-5.4); SAMPLE HEMOLYSIS CHECK 0; SAMPLE ICTERIC CHECK 0; SAMPLE LIPEMIA CHECK 0; SODIUM 134 MEQ/L (136-147); UREA NITROGEN (BUN) 7 mg/dL (9-23)
[2017-03-30 07:01] VITALS: BP 158/78
[2017-03-30 15:09] VITALS: BP 123/74
[2017-03-30 19:24] VITALS: BP 128/66
[2017-03-31] VITALS (7 sets, daily range): BP systolic 109–140; BP diastolic 59–78
[2017-03-31] MEDS ORDERED: DUONEB 2.5-0.5 M3 ML AEROSOL (12:31)
[2017-03-31] MEDS ORDERED: CLOPIDOGREL75 MG PO (12:32)
[2017-03-31] MEDS ORDERED: LOVENOX40 MG/0.4 SC (12:32)
[2017-03-31] MEDS ORDERED: TYLENOL REGULA325 MG PO (12:33)
[2017-04-01 02:46] VITALS: BP 148/88
[2017-04-01 03:08] LABS: POINT-OF-CARE METER ID UU14174225
[2017-04-01 07:58] VITALS: BP 159/80
== END 2017-04-01 12:45 | DRG 65 ==
LOC: EME → EDBD 09:20 → 5SOUTH 12:57 → EDOF 12:57 → CANRESERV 13:15 → ENRESERV 13:15 → EDOF 13:19 → ENRESERV 13:35 → 5SOUTH 14:28
PROVIDERS: Emergency Medicine; Family Medicine
DX: I63.9 Cerebral infarction, unspecified (principal); G81.94 Hemiplegia, unspecified affecting left nondominant side; R29.810 Facial weakness; R47.81 Slurred speech; E87.1 Hypo-osmolality and hyponatremia; I10 Essential (primary) hypertension; E78.5 Hyperlipidemia, unspecified; J44.9 Chronic obstructive pulmonary disease, unspecified; K21.9 Gastro-esophageal reflux disease without esophagitis; D64.9 Anemia, unspecified; Z91.81 History of falling; Z87.891 Personal history of nicotine dependence; Z79.82 Long term (current) use of aspirin; Z86.73 Personal history of transient ischemic attack (TIA), and cerebral infarction without residual deficits; Z23 Encounter for immunization
CPT/HCPCS: 70450; 70496; 70498; 70551; 73030; 73080; 80048; 80061; 81003; 82150; 82272; 82948; 83036; 83690; 84484; 85025; 85027; 85045; 85610; 85730; 86850; 86900; 86901; 90686; 92526 GN; 92610 GN; 94640; 94640 76; 97530 GO; 97530 GP; 99202; 99281; 99285; G0480; J1650